=== PATIENT | male | born 1965 | race Caucasian/White ===

== ENCOUNTER → 2023-11-25 | Emergency (ER) | payer MEDICARE, OTHER ==
[~2023-11-25] VITALS: Ht 180.3 cm; Wt 101.6 kg
[2023-11-25 20:51] LABS: BASOPHILS % (AUTO) 0.2 % (0.0-2.0); EOSINOPHILS # (AUTO) 0.2 K/uL (0.0-0.7); HEMATOCRIT 35 % (39-51); HEMOGLOBIN 11.6 g/dL (13.5-17.5); LYMPHOCYTES # (AUTO) 1.9 K/uL (0.8-4.8); LYMPHOCYTES % (AUTO) 20.2 % (20.0-44.0); MEAN CORPUSCULAR HEMOGLOBIN 30 PG (26.0-33.0); MEAN CORPUSCULAR HGB CONC 33 g/dl (31.0-36.0); MEAN CORPUSCULAR VOLUME 90 fL (80-96); MONOCYTES # (AUTO) 1.5 K/uL (0.1-1.30); MONOCYTES % (AUTO) 15.8 % (2.0-12.0); NEUTROPHILS # (AUTO) 5.7 K/uL (1.8-8.9); NEUTROPHILS % (AUTO) 61.8 % (43.0-81.0); PLATELET COUNT (AUTO) 124 K/uL (150-450); RED BLOOD CELL COUNT(AUTO) 3.91 MIL/uL (4.5-6.0); RED CELL DISTRIBUTION WIDTH 15.8 % (11.5-15.0); WHITE BLOOD COUNT (AUTO) 9.2 K/uL (4.3-11.0)
[2023-11-25] MEDS: IV NS 0.9% 500 ML BAG IV ONE (20:53)
[2023-11-25 21:00] LABS: CALCIUM, SERUM 9.2 mg/dL (8.5-10.1); CARBON DIOXIDE 27 mmol/L (21-32); CHLORIDE 105 mmol/L (98-107); CREATININE 1.2 mg/dL (0.6-1.3); GLUCOSE 116 mg/dL (74-106); POTASSIUM 3.8 mmol/L (3.5-5.1); SODIUM SERUM 136 mmol/L (136-145); UREA NITROGEN, BLOOD 25 mg/dL (7-18)
[2023-11-25 21:22] LABS: APPEARANCE,URINE Clear (CLEAR); BILIRUBIN,URINE SMALL (NEGATIVE); BLOOD, URINE Trace-lysed Ery/uL (NEGATIVE); COLOR,URINE YELLOW (YELLOW); KETONES,URINE Trace mg/dL (NEGATIVE); LEUKOCYTE ESTERASE ,URINE Negative (NEGATIVE); NITRITE, URINE Negative (NEGATIVE); PH,URINE 5.5 (5.0-8.0); PROTEIN,URINE Negative (NEGATIVE); UGLUCOSE Negative (NEGATIVE); UROBILINOGEN,URINE 0.2 EU/dL (0.2)
[2023-11-25 21:32] LABS: ADD URINE CULTURE NO; BACTERIA,URINE 1+ /HPF (None Seen); WBC,URINE 0-2 /HPF (0-3)
[2023-11-25 21:33] LABS: SQUAMOUS EPITHELIAL CELL,UR Few /HPF (None Seen)
[2023-11-25 23:43] VITALS: BP 130/70; TEMP 98.4; O2SAT 97
== END ==
LOC: ER 20:17
DX: F41.1 Generalized anxiety disorder (principal); G62.9 Polyneuropathy, unspecified; F20.9 Schizophrenia, unspecified; F31.9 Bipolar disorder, unspecified; R41.82 Altered mental status, unspecified
CPT/HCPCS: 99285; 96360; 70450; 71045; 93005; 85025; 80048; 81001; 36415; 84484 ×2; J7040

== ENCOUNTER 2024-07-29 13:44 | Inpatient (IN) | payer MEDICAID, OTHER ==
[~2024-07-29] VITALS: Ht 180.3 cm; Wt 102.1 kg
[2024-07-29 14:11] LABS: BASOPHILS # (AUTO) 0.1 K/uL (0.0-0.2); BASOPHILS % (AUTO) 0.5 % (0.0-2.0); EOSINOPHILS # (AUTO) 0.2 K/uL (0.0-0.7); EOSINOPHILS % (AUTO) 1.4 % (0.0-6.0); HEMATOCRIT 38 % (39-51); HEMOGLOBIN 12.3 g/dL (13.5-17.5); LYMPHOCYTES # (AUTO) 2.8 K/uL (0.8-4.8); LYMPHOCYTES % (AUTO) 25.6 % (20.0-44.0); MEAN CORPUSCULAR HEMOGLOBIN 30 PG (26.0-33.0); MEAN CORPUSCULAR HGB CONC 33 g/dl (31.0-36.0); MEAN CORPUSCULAR VOLUME 90 fL (80-96); NEUTROPHILS # (AUTO) 6.8 K/uL (1.8-8.9); NEUTROPHILS % (AUTO) 63.5 % (43.0-81.0); PLATELET COUNT (AUTO) 203 K/uL (150-450); RED BLOOD CELL COUNT(AUTO) 4.18 MIL/uL (4.5-6.0); RED CELL DISTRIBUTION WIDTH 15.8 % (11.5-15.0); WHITE BLOOD COUNT (AUTO) 10.7 K/uL (4.3-11.0)
[2024-07-29 14:27] LABS: ALANINE AMINOTRANSFERASE 12 U/L (12-78); ALBUMIN 3.2 g/dL (3.4-5.0); ALKALINE PHOSPHATASE 70 U/L (46-116); ASPARTATE AMINOTRANSFERASE 20 U/L (15-37); BILIRUBIN,DIRECT 0.1 mg/dL (0.0-0.2); BILIRUBIN,TOTAL 0.2 mg/dL (0.2-1.0); CALCIUM, SERUM 9.3 mg/dL (8.5-10.1); CARBON DIOXIDE 32 mmol/L (21-32); CHLORIDE 109 mmol/L (98-107); CREATININE 1.2 mg/dL (0.6-1.3); GLUCOSE 79 mg/dL (74-106); POTASSIUM 4.4 mmol/L (3.5-5.1); SODIUM SERUM 145 mmol/L (136-145); TOTAL PROTEIN, SERUM 8.3 g/dL (6.4-8.2); UREA NITROGEN, BLOOD 25 mg/dL (7-18)
[2024-07-29 14:29] LABS: ACETAMINOPHEN 0 ug/ml (10-30); ALCOHOL, BLOOD < 3 mg/dL (0-10); SALICYLATE 1.3 mg/dL (2.8-20.0)
[2024-07-29 15:04] LABS: APPEARANCE,URINE CLOUDY (CLEAR); BILIRUBIN,URINE NEGATIVE (NEGATIVE); BLOOD, URINE NEGATIVE Ery/uL (NEGATIVE); COLOR,URINE YELLOW (YELLOW); KETONES,URINE TRACE mg/dL (NEGATIVE); LEUKOCYTE ESTERASE ,URINE 2+ (NEGATIVE); NITRITE, URINE POSITIVE (NEGATIVE); PH,URINE 7.5 (5.0-8.0); PROTEIN,URINE 1+ mg/dl (NEGATIVE); UGLUCOSE NEGATIVE (NEGATIVE); UROBILINOGEN,URINE 0.2 EU/dL (0.2)
[2024-07-29 15:22] LABS: AMPHETAMINE, URINE NEGATIVE (NEGATIVE); BARBITURATE, URINE NEGATIVE (NEGATIVE); BENZODIAZEPINE, URINE NEGATIVE (NEGATIVE); CANNABINOID, URINE NEGATIVE (NEGATIVE); COCCAINE, URINE NEGATIVE (NEGATIVE); OPIATE, URINE NEGATIVE (NEGATIVE); PHENCYCLIDINE SCREEN,URINE NEGATIVE (NEGATIVE)
[2024-07-29] MEDS ORDERED: AMIN30LI2 PO (15:35)
[2024-07-29] MEDS ORDERED: CARB1TAB21 PO (15:35)
[2024-07-29] MEDS ORDERED: CLOZ25TA4 PO (15:35)
[2024-07-29] MEDS ORDERED: TRAM100T34 PO (15:35)
[2024-07-29] MEDS ORDERED: CLOZ200T PO (15:35)
[2024-07-29] MEDS ORDERED: LACT10SO29 PO (15:35)
[2024-07-29] MEDS ORDERED: DIVA-76 PO (15:35)
[2024-07-29] MEDS ORDERED: DIVA250T4 PO (15:35)
[2024-07-29] MEDS ORDERED: BENZ1TAB7 PO (15:35)
[2024-07-29] MEDS ORDERED: IBUP-1955 PO (15:35)
[2024-07-29] MEDS ORDERED: ACET325T53 PO (15:35)
[2024-07-29] MEDS ORDERED: GLYC2TAB21 PO (15:35)
[2024-07-29] MEDS ORDERED: ASPI-1420 PO (15:35)
[2024-07-29 15:53] LABS: ADD URINE CULTURE YES; BACTERIA,URINE 4+ /HPF (None Seen); RBC,URINE 0-2 /HPF (0-2); SQUAMOUS EPITHELIAL CELL,UR 0-2 /HPF (None Seen); TRIPLE PHOSPHATE CRYSTAL,UR Many /HPF (None Seen); WBC,URINE 21-50 /HPF (0-3)
[2024-07-29] MEDS ORDERED: TEMAZEPAM 7.5 MG CAPSULE PO PRN ×2 (21:00)
[2024-07-29] MEDS ORDERED: ACETAMINOPHEN 325 MG TABLET PO PRN (21:00)
[2024-07-29] MEDS ORDERED: MAG HYDROX/AL HYDROX/SIMETH 30 ML UDC PO PRN (21:00)
[2024-07-29] MEDS ORDERED: MAGNESIUM HYDROXIDE 30 ML UDC PO PRN (21:00)
[2024-07-29] MEDS ORDERED: LORAZEPAM 0.5 MG TABLET PO PRN ×2 (21:00)
[2024-07-29 21:33] VITALS: BP 121/79; TEMP 97.7; O2SAT 99
[2024-07-30] MEDS ORDERED: ACETAMINOPHEN 325 MG TABLET PO PRN (00:30)
[2024-07-30] MEDS ORDERED: IBUPROFEN 600 MG TABLET PO PRN (00:30)
[2024-07-30 07:29] LABS: BASOPHILS % (AUTO) 0.3 % (0.0-2.0); EOSINOPHILS # (AUTO) 0.2 K/uL (0.0-0.7); HEMATOCRIT 34 % (39-51); HEMOGLOBIN 11.3 g/dL (13.5-17.5); LYMPHOCYTES # (AUTO) 2.3 K/uL (0.8-4.8); LYMPHOCYTES % (AUTO) 30.6 % (20.0-44.0); MEAN CORPUSCULAR HEMOGLOBIN 30 PG (26.0-33.0); MEAN CORPUSCULAR HGB CONC 33 g/dl (31.0-36.0); MEAN CORPUSCULAR VOLUME 90 fL (80-96); MONOCYTES # (AUTO) 0.7 K/uL (0.1-1.30); MONOCYTES % (AUTO) 9.3 % (2.0-12.0); NEUTROPHILS # (AUTO) 4.2 K/uL (1.8-8.9); NEUTROPHILS % (AUTO) 56.8 % (43.0-81.0); PLATELET COUNT (AUTO) 197 K/uL (150-450); RED BLOOD CELL COUNT(AUTO) 3.81 MIL/uL (4.5-6.0); RED CELL DISTRIBUTION WIDTH 15.6 % (11.5-15.0); WHITE BLOOD COUNT (AUTO) 7.4 K/uL (4.3-11.0)
[2024-07-30 07:56] LABS: ALBUMIN 2.8 g/dL (3.4-5.0); BILIRUBIN,TOTAL 0.2 mg/dL (0.2-1.0); CALCIUM, SERUM 9.2 mg/dL (8.5-10.1); CREATININE 1.2 mg/dL (0.6-1.3); POTASSIUM 4.3 mmol/L (3.5-5.1); TOTAL PROTEIN, SERUM 7.5 g/dL (6.4-8.2)
[2024-07-30 08:00] VITALS: BP 116/73; TEMP 98.4; O2SAT 95
[2024-07-30] MEDS: ENSURE ENLIVE CHOC 237 ML CAN PO SCH (08:23)
[2024-07-30] MEDS: ASPIRIN EC 81 MG TABLET.DR PO SCH (08:34)
[2024-07-30] MEDS: GLYCOPYRROLATE 1 MG TABLET PO SCH (08:35)
[2024-07-30] MEDS: TRAMADOL HCL 50 MG TABLET PO SCH (08:35)
[2024-07-30] MEDS: BENZTROPINE MESYLATE (1 MG) 1 MG TABLET PO SCH (08:36)
[2024-07-30] MEDS: CARBIDOPA/LEVODOPA 25/100 MG 1 UDTAB PO SCH (08:36)
[2024-07-30] MEDS: PROSOURCE / PROSTAT (PYXIS) 30 ML UDC PO SCH (08:43)
[2024-07-30] MEDS ORDERED: DIVALPROEX SODIUM 250 MG TABLET.DR PO SCH ×2 (09:00→22:00)
[2024-07-30 16:00] VITALS: BP 123/78; TEMP 97.9; O2SAT 97
[2024-07-30 21:22] VITALS: BP 114/76; TEMP 98.1; O2SAT 97
[2024-07-30] MEDS: DIVALPROEX SODIUM 125 MG TABLET.DR PO SCH (21:59)
[2024-07-30] MEDS: BLOOD SUGAR DIAGNOSTIC 1 EACH STRIP IN ONE (21:59)
[2024-07-30] MEDS: risperiDONE 0.25 MG TABLET PO SCH (22:00)
[2024-07-30] MEDS: LACTULOSE 10 G/15 ML UDC (PYXIS) PO SCH (22:02)
[2024-07-31 08:00] VITALS: BP 115/72; TEMP 98.1; O2SAT 98
[2024-07-31] MEDS: DIVALPROEX SODIUM 125 MG TABLET.DR PO SCH (13:22)
[2024-07-31 16:00] VITALS: BP 114/62; TEMP 97.8; O2SAT 99
[2024-07-31] MEDS: risperiDONE 0.25 MG TABLET PO SCH (17:01)
[2024-07-31 19:56] VITALS: BP 118/64; TEMP 98.5; O2SAT 100
[2024-07-31] MEDS: CLOZAPINE 100 MG TABLET PO SCH (21:13)
[2024-08-01 08:00] VITALS: BP 102/69; TEMP 98; O2SAT 100
[2024-08-01 16:00] VITALS: BP 122/81; TEMP 97.5; O2SAT 95
[2024-08-01] MEDS: risperiDONE 0.25 MG TABLET PO SCH (17:24)
[2024-08-01 20:00] VITALS: BP 126/75; TEMP 98.1; O2SAT 97
[2024-08-01] MEDS: CLOZAPINE 100 MG TABLET PO SCH (21:08)
[2024-08-02 07:51] LABS: BASOPHILS % (AUTO) 0.4 % (0.0-2.0); EOSINOPHILS # (AUTO) 0.3 K/uL (0.0-0.7); EOSINOPHILS % (AUTO) 3.5 % (0.0-6.0); HEMATOCRIT 30 % (39-51); LYMPHOCYTES # (AUTO) 2.7 K/uL (0.8-4.8); LYMPHOCYTES % (AUTO) 37.4 % (20.0-44.0); MEAN CORPUSCULAR HEMOGLOBIN 30 PG (26.0-33.0); MEAN CORPUSCULAR HGB CONC 34 g/dl (31.0-36.0); MEAN CORPUSCULAR VOLUME 89 fL (80-96); MONOCYTES # (AUTO) 0.8 K/uL (0.1-1.30); MONOCYTES % (AUTO) 10.6 % (2.0-12.0); NEUTROPHILS # (AUTO) 3.5 K/uL (1.8-8.9); NEUTROPHILS % (AUTO) 48.1 % (43.0-81.0); PLATELET COUNT (AUTO) 184 K/uL (150-450); RED BLOOD CELL COUNT(AUTO) 3.34 MIL/uL (4.5-6.0); RED CELL DISTRIBUTION WIDTH 15.3 % (11.5-15.0); WHITE BLOOD COUNT (AUTO) 7.2 K/uL (4.3-11.0)
[2024-08-02 08:00] VITALS: BP 97/61; TEMP 98.1; O2SAT 98
[2024-08-02] MEDS: CLOZAPINE 25 MG TABLET PO SCH (11:15)
[2024-08-02 16:00] VITALS: BP 120/77; TEMP 98.1; O2SAT 99
[2024-08-02 19:50] VITALS: BP 114/66; TEMP 98.3; O2SAT 99
[2024-08-02] MEDS: SULFAMETH/TRIMETH 800/160 MG 1 UDTAB TABLET PO SCH (22:09)
[2024-08-03 08:00] VITALS: BP 107/65; TEMP 98; O2SAT 98
[2024-08-03] MEDS: risperiDONE 0.25 MG TABLET PO SCH (08:52)
[2024-08-03 16:00] VITALS: BP 102/60; TEMP 97.5; O2SAT 98
[2024-08-03 20:00] VITALS: BP 113/61; TEMP 98.4; O2SAT 97
[2024-08-03] MEDS: CLOZAPINE 100 MG TABLET PO SCH (21:03)
[2024-08-04 08:00] VITALS: BP 114/68; TEMP 97.8; O2SAT 97
[2024-08-04 16:00] VITALS: BP 113/66; TEMP 97.8; O2SAT 98
[2024-08-04 20:00] VITALS: BP 122/62; TEMP 97.8; O2SAT 98
[2024-08-05 08:00] VITALS: BP 110/63; TEMP 97.6; O2SAT 96
[2024-08-05 09:49] LABS: BASOPHILS % (AUTO) 0.6 % (0.0-2.0); EOSINOPHILS # (AUTO) 0.4 K/uL (0.0-0.7); EOSINOPHILS % (AUTO) 4.7 % (0.0-6.0); HEMATOCRIT 30 % (39-51); HEMOGLOBIN 10.2 g/dL (13.5-17.5); LYMPHOCYTES # (AUTO) 2.5 K/uL (0.8-4.8); LYMPHOCYTES % (AUTO) 32.4 % (20.0-44.0); MEAN CORPUSCULAR HEMOGLOBIN 30 PG (26.0-33.0); MEAN CORPUSCULAR HGB CONC 34 g/dl (31.0-36.0); MEAN CORPUSCULAR VOLUME 89 fL (80-96); MONOCYTES % (AUTO) 13.8 % (2.0-12.0); NEUTROPHILS # (AUTO) 3.7 K/uL (1.8-8.9); NEUTROPHILS % (AUTO) 48.5 % (43.0-81.0); PLATELET COUNT (AUTO) 197 K/uL (150-450); RED CELL DISTRIBUTION WIDTH 15.4 % (11.5-15.0); WHITE BLOOD COUNT (AUTO) 7.6 K/uL (4.3-11.0)
[2024-08-05 09:59] LABS: ALBUMIN 2.5 g/dL (3.4-5.0); BILIRUBIN,TOTAL 0.2 mg/dL (0.2-1.0); CALCIUM, SERUM 9.3 mg/dL (8.5-10.1); CREATININE 1.5 mg/dL (0.6-1.3); POTASSIUM 4.1 mmol/L (3.5-5.1)
[2024-08-05 16:00] VITALS: BP 107/63; TEMP 98.1; O2SAT 100
[2024-08-05 21:25] VITALS: BP 116/72; TEMP 98.1; O2SAT 99
[2024-08-06 08:00] VITALS: BP 111/63; TEMP 97.6; O2SAT 98
[2024-08-06 16:00] VITALS: BP 99/64; TEMP 98.2; O2SAT 98
[2024-08-06 20:29] VITALS: BP 116/64; TEMP 98.1; O2SAT 97
[2024-08-07 08:00] VITALS: BP 114/71; TEMP 98.7; O2SAT 98
[2024-08-07 15:46] VITALS: BP 121/75; TEMP 98; O2SAT 98
[2024-08-07 20:00] VITALS: BP 114/68; TEMP 97.7; O2SAT 96
[2024-08-07] MEDS: CLOZAPINE 100 MG TABLET PO SCH (21:24)
[2024-08-08 08:00] VITALS: BP 98/58; TEMP 97.7; O2SAT 97
[2024-08-08 16:00] VITALS: BP 99/62; TEMP 98; O2SAT 98
[2024-08-08 20:15] VITALS: BP 114/63; TEMP 98.2; O2SAT 99
[2024-08-08] MEDS: CLOZAPINE 100 MG TABLET PO SCH (21:16)
[2024-08-09 03:04] VITALS: BP 103/62; TEMP 97.7; O2SAT 99
[2024-08-09 07:34] LABS: BASOPHILS % (AUTO) 0.6 % (0.0-2.0); EOSINOPHILS # (AUTO) 0.4 K/uL (0.0-0.7); EOSINOPHILS % (AUTO) 6.8 % (0.0-6.0); HEMATOCRIT 28 % (39-51); HEMOGLOBIN 9.4 g/dL (13.5-17.5); LYMPHOCYTES # (AUTO) 2.4 K/uL (0.8-4.8); LYMPHOCYTES % (AUTO) 41.9 % (20.0-44.0); MEAN CORPUSCULAR HEMOGLOBIN 30 PG (26.0-33.0); MEAN CORPUSCULAR HGB CONC 33 g/dl (31.0-36.0); MEAN CORPUSCULAR VOLUME 90 fL (80-96); MONOCYTES # (AUTO) 0.8 K/uL (0.1-1.30); NEUTROPHILS # (AUTO) 2.1 K/uL (1.8-8.9); NEUTROPHILS % (AUTO) 36.7 % (43.0-81.0); PLATELET COUNT (AUTO) 191 K/uL (150-450); RED BLOOD CELL COUNT(AUTO) 3.14 MIL/uL (4.5-6.0); RED CELL DISTRIBUTION WIDTH 15.5 % (11.5-15.0); WHITE BLOOD COUNT (AUTO) 5.7 K/uL (4.3-11.0)
[2024-08-09 07:50] LABS: ALBUMIN 2.3 g/dL (3.4-5.0); BILIRUBIN,TOTAL 0.2 mg/dL (0.2-1.0); CALCIUM, SERUM 8.6 mg/dL (8.5-10.1); CREATININE 1.6 mg/dL (0.6-1.3); POTASSIUM 4.2 mmol/L (3.5-5.1); TOTAL PROTEIN, SERUM 6.5 g/dL (6.4-8.2)
[2024-08-09 08:00] VITALS: BP 124/74; TEMP 97.8; O2SAT 98
[2024-08-09 16:29] VITALS: BP 114/70; TEMP 98.2; O2SAT 98
[2024-08-09 20:00] VITALS: BP 110/65; TEMP 98; O2SAT 99
[2024-08-10 07:54] LABS: BASOPHILS % (AUTO) 0.4 % (0.0-2.0); EOSINOPHILS # (AUTO) 0.4 K/uL (0.0-0.7); EOSINOPHILS % (AUTO) 5.4 % (0.0-6.0); HEMATOCRIT 30 % (39-51); HEMOGLOBIN 9.8 g/dL (13.5-17.5); LYMPHOCYTES # (AUTO) 2.1 K/uL (0.8-4.8); MEAN CORPUSCULAR HEMOGLOBIN 30 PG (26.0-33.0); MEAN CORPUSCULAR HGB CONC 33 g/dl (31.0-36.0); MEAN CORPUSCULAR VOLUME 91 fL (80-96); MONOCYTES # (AUTO) 0.9 K/uL (0.1-1.30); MONOCYTES % (AUTO) 14.4 % (2.0-12.0); NEUTROPHILS % (AUTO) 46.8 % (43.0-81.0); PLATELET COUNT (AUTO) 194 K/uL (150-450); RED BLOOD CELL COUNT(AUTO) 3.31 MIL/uL (4.5-6.0); RED CELL DISTRIBUTION WIDTH 15.4 % (11.5-15.0); WHITE BLOOD COUNT (AUTO) 6.5 K/uL (4.3-11.0)
[2024-08-10 08:00] VITALS: BP 96/60; TEMP 98; O2SAT 97
[2024-08-10 14:10] VITALS: BP 106/60; TEMP 98
[2024-08-10 15:10] VITALS: BP 104/63; TEMP 98
[2024-08-10 16:00] VITALS: BP 104/63; TEMP 98; O2SAT 98
[2024-08-10 16:10] VITALS: BP 104/63; TEMP 98; O2SAT 98
[2024-08-10 20:00] VITALS: BP 103/57; TEMP 98.1; O2SAT 99
[2024-08-11 08:00] VITALS: BP 121/70; TEMP 97.9; O2SAT 96
== END 2024-08-11 15:30 | DRG 750 ==
LOC: ER 13:53 → GPS 18:05
PROVIDERS: ADMIT Psychiatry & Neurology Psychiatry; ATTEND Internal Medicine
DX: F25.0 Schizoaffective disorder, bipolar type (principal); G93.49 Other encephalopathy; E44.1 Mild protein-calorie malnutrition; F29 Unspecified psychosis not due to a substance or known physiological condition; G62.9 Polyneuropathy, unspecified; D64.9 Anemia, unspecified; F06.70 Mild neurocognitive disorder due to known physiological condition without behavioral disturbance; Z73.6 Limitation of activities due to disability; F19.10 Other psychoactive substance abuse, uncomplicated; N39.0 Urinary tract infection, site not specified; Z87.891 Personal history of nicotine dependence
CPT/HCPCS: 36415; 80048-TC; 80053-TC; 80061-TC; 80076-TC; 80164-TC; 81001; 82140-TC; 82962-TC; 84443-TC; 85025-TC; 87081-TC; 87086-TC; 87186-TC; 97110-TC; 97112-TC; 97116-TC; 97530-TC; G0480